=== PATIENT | male | born 1995 | race Hispanic/Latino ===

== ENCOUNTER 2020-04-30 08:24 | Emergency (ER) | payer SELFPAY ==
[2020-04-30 10:00] LABS: Absolute Lymphocytes (CBC) 2.7 K/uL (0.7-4.9); Basophils % 0.6 % (0-1.3); Lymphocytes % 30.4 % (15.3-44.8); MPV 9.4 fL (7.6-11.3); RBC Red Blood Cell Count 5.36 M/uL (4.33-5.43)
[2020-04-30] MEDS ORDERED: NA CHLORIDE 0.9% 0 ML ONE (10:01)
[2020-04-30] MEDS ORDERED: NA CHLORIDE 0.9% 1,000 ML ONE (10:02)
[2020-04-30 10:10] LABS: BUN Blood Urea Nitrogen 16 mg/dL (7-18); Bicarbonate 29 mmol/L (21-32); Glucose Level 256 mg/dL (74-106); Potassium 3.8 mmol/L (3.5-5.1); Sodium Level 140 mmol/L (136-145)
--- NOTE | 2020-04-30 11:53 | EDPHYS ---
Physician Documentation [facility] Name: Bharathi Sanchez Jr Age: 24 yrs Sex: Male : 1995 Arrival Date: 04/30/2020 Time: 08:27 Bed 8 Private MD: ED Physician Kota Miles HPI: 04/30 09:36 This 24 yrs old Male presents to ER via Ambulatory with complaints of High kb Blood Sugar. 09:36 The patient or guardian reports hyperglycemia, that was potentially precipitated by no kb particular event. Onset: The symptoms/episode began/occurred today. Associated signs and symptoms: Pertinent positives: None. Pertinent negatives: None. Current symptoms: In the emergency department the patient's symptoms are unchanged from the initial presentation. The patient has not experienced similar symptoms in the past. The patient has not recently seen a physician. Pt reports he got a physical at work this morning and they told him his blood sugar was over 500 so he needed to come to the ER. Denies any medical history. Does have a family history of DM (mother). . Historical: - Allergies: 08:41 No Known Allergies; iw - Home Meds: 08:41 None [Active]; iw - PMHx: 08:41 None; iw - PSHx: 08:41 None; iw - Immunization history:: Adult Immunizations up to date. - Social history:: Smoking status: Patient reports the use of cigarette tobacco products, smokes one-half pack cigarettes per day. ROS: 09:36 Constitutional: Negative for fever, chills, and weight loss, Cardiovascular: Negative kb for chest pain, palpitations, and edema, Respiratory: Negative for shortness of breath, cough, wheezing, and pleuritic chest pain, Abdomen/GI: Negative for abdominal pain, nausea, vomiting, diarrhea, and constipation, Back: Negative for injury and pain, MS/Extremity: Negative for injury and deformity, Skin: Negative for injury, rash, and discoloration, Neuro: Negative for headache, weakness, numbness, tingling, and seizure. Exam: 09:36 Constitutional: This is a well developed, well nourished patient who is awake, alert, kb and in no acute distress. Head/Face: Normocephalic, atraumatic. Chest/axilla: Normal chest wall appearance and motion. Nontender with no deformity. No lesions are appreciated. Cardiovascular: Regular rate and rhythm with a normal S1 and S2. No gallops, murmurs, or rubs. Normal PMI, no JVD. No pulse deficits. Respiratory: Lungs have equal breath sounds bilaterally, clear to auscultation and percussion. No rales, rhonchi or wheezes noted. No increased work of breathing, no retractions or nasal flaring. Abdomen/GI: Soft, non-tender, with normal bowel sounds. No distension or tympany. No guarding or rebound. No evidence of tenderness throughout. Skin: Warm, dry with normal turgor. Normal color with no rashes, no lesions, and no evidence of cellulitis. MS/ Extremity: Pulses equal, no cyanosis. Neurovascular intact. Full, normal range of motion. Neuro: Awake and alert, GCS 15, oriented to person, place, time, and situation. Cranial nerves II-XII grossly intact. Motor strength 5/5 in all extremities. Sensory grossly intact. Cerebellar exam normal. Normal gait. Vital Signs: 08:40 BP 117 / 71; Pulse 58; Resp 18; Temp 98.2; Pulse Ox 99% ; Weight 104.33 kg; Height 6 iw ft. 3 in. (190.50 cm); Pain 0/10; 09:42 BP 117 / 72; Pulse 69; Resp 16; Pulse Ox 100% ; bp 10:38 BP 119 / 69; Pulse 53; Resp 16; Pulse Ox 100% ; bp 11:39 BP 106 / 94; Pulse 56; Resp 14; Pulse Ox 100% ; bp 08:40 Body Mass Index 28.75 (104.33 kg, 190.50 cm) iw MDM: 08:48 Patient medically screened. kb 09:36 Data reviewed: vital signs, nurses notes. Data interpreted: Pulse oximetry: on room air kb is 99 %. Interpretation: normal. 11:51 Counseling: I had a detailed discussion with the patient and/or guardian regarding: the kb historical points, exam findings, and any diagnostic results supporting the discharge/admit diagnosis, lab results, the need for outpatient follow up, a family practitioner, to return to the emergency department if symptoms worsen or persist or if there are any questions or concerns that arise at home. 04/30 08:58 Order name: CBC with Diff; Complete Time: 10:03 kb 04/30 08:58 Order name: Basic Metabolic Panel; Complete Time: 10:12 kb 04/30 08:58 Order name: Hemoglobin A1c kb 04/30 08:58 Order name: Glucose, Ancillary Testing; Complete Time: 09:00 [facility] 04/30 11:29 Order name: Hemoglobin A1c; Complete Time: 11:51 [facility] 04/30 08:58 Order name: IV Start; Complete Time: 09:42 kb Administered Medications: 09:50 Drug: NS 0.9% 1000 ml Route: IV; Rate: 1000 ml; Site: right forearm; bp 12:08 Follow up: IV Status: Completed infusion; IV Intake: 1000ml bp Point of Care Testing: Blood Glucose: 08:47 Blood Glucose: 262 mg/dL; iw Ranges: Critical Glucose Levels:Adult <50 mg/dl or >400 mg/dl <40 mg/dl or >180 mg/dl Disposition: 04/30/20 11:52 Discharged to Home. Impression: Diabetes mellitus due to underlying condition with hyperglycemia. - Condition is Stable. - Discharge Instructions: Type 2 Diabetes Mellitus, Diagnosis, Adult, [id number], Type 2 Diabetes Mellitus, Self Care, Adult, [id number]. - Prescriptions for Metformin 500 mg Oral Tablet - take 1 tablet by ORAL route 2 times per day for 14 days Then take 1 tablet with morning meals AND evening meals; 28 tablet. - Medication Reconciliation Form, Thank You Letter, Antibiotic Education, Prescription Opioid Use, Work release form form. - Follow up: Emergency Department; When: As needed; Reason: Worsening of condition. Follow up: Private Physician; When: 2 - 3 days; Reason: Recheck today's complaints, Continuance of care, Re-evaluation by your physician. Signatures: Dispatcher [employer] [facility] Michelle Escobar, SECOND HELPER-C SECOND HELPER-Maddie Broussard, MIGNON RN iw Jt Gutierres RN RN bp Corrections: (The following items were deleted from the chart) 12:09 11:52 04/30/2020 11:52 Discharged to Home. Impression: Diabetes mellitus due to bp underlying condition with hyperglycemia. Condition is Stable. Forms are Medication Reconciliation Form, Thank You Letter, Antibiotic Education, Prescription Opioid Use. Follow up: Emergency Department; When: As needed; Reason: Worsening of condition. Follow up: Private Physician; When: 2 - 3 days; Reason: Recheck today's complaints, Continuance of care, Re-evaluation by your physician. kb
--- NOTE | 2020-04-30 11:53 | ER ---
Nurse's Notes [facility] Name: Bharathi Sanchez Jr Age: 24 yrs Sex: Male : 1995 Arrival Date: 04/30/2020 Time: 08:27 Bed 8 Private MD: Diagnosis: Diabetes mellitus due to underlying condition with hyperglycemia Presentation: 04/30 08:40 Chief complaint: Patient states: I went for a work physical and they told me my blood iw sugar was high and I needed to come to the ER for evaluation. Coronavirus screen: Client denies travel out of the [place] in the last 14 days. At this time, the client does not indicate any symptoms associated with coronavirus-19. Ebola Screen: Patient negative for fever greater than or equal to 101.5 degrees Fahrenheit, and additional compatible Ebola Virus Disease symptoms Patient denies exposure to infectious person. Patient denies travel to an Ebola-affected area in the 21 days before illness onset. No symptoms or risks identified at this time. Initial Sepsis Screen: Does the patient meet any 2 criteria? No. Patient's initial sepsis screen is negative. Does the patient have a suspected source of infection? No. Patient's initial sepsis screen is negative. Risk Assessment: Do you want to hurt yourself or someone else? Patient reports no desire to harm self or others. Onset of symptoms was April 30, 2020. 08:40 Method Of Arrival: Ambulatory iw 08:40 Acuity: IKE 3 iw Triage Assessment: 08:41 General: Appears in no apparent distress. Behavior is calm, cooperative. Pain: Denies iw pain. 09:20 General: Appears in no apparent distress. comfortable, Behavior is cooperative, bp appropriate for age, anxious. Pain: Denies pain. EENT: No deficits noted. Neuro: No deficits noted. Cardiovascular: No deficits noted. Respiratory: No deficits noted. GI: No signs and/or symptoms were reported involving the gastrointestinal system. : No signs and/or symptoms were reported regarding the genitourinary system. Derm: No deficits noted. Musculoskeletal: No deficits noted. Historical: - Allergies: 08:41 No Known Allergies; iw - Home Meds: 08:41 None [Active]; iw - PMHx: 08:41 None; iw - PSHx: 08:41 None; iw - Immunization history:: Adult Immunizations up to date. - Social history:: Smoking status: Patient reports the use of cigarette tobacco products, smokes one-half pack cigarettes per day. Screenin:21 Abuse screen: Denies threats or abuse. Denies injuries from another. Nutritional bp screening: No deficits noted. Tuberculosis screening: No symptoms or risk factors identified. Fall Risk None identified. Assessment: 09:20 General: SEE TRIAGE NOTE. bp 09:43 Reassessment: IVF INFUSING, VS STABLE ON MONITOR. bp 10:38 Reassessment: IVF INFUSING. REPEAT LABS PENDING FOR DISPO. bp 12:08 Reassessment: PT D/C HOME AMBULATORY, DX WITH DIABETES. bp Vital Signs: 08:40 BP 117 / 71; Pulse 58; Resp 18; Temp 98.2; Pulse Ox 99% ; Weight 104.33 kg; Height 6 iw ft. 3 in. (190.50 cm); Pain 0/10; 09:42 BP 117 / 72; Pulse 69; Resp 16; Pulse Ox 100% ; bp 10:38 BP 119 / 69; Pulse 53; Resp 16; Pulse Ox 100% ; bp 11:39 BP 106 / 94; Pulse 56; Resp 14; Pulse Ox 100% ; bp 08:40 Body Mass Index 28.75 (104.33 kg, 190.50 cm) iw ED Course: 08:27 Patient arrived in ED. as 08:27 Michelle Escobar FNP-C is [facility]. kb 08:27 Kota Miles MD is Attending Physician. kb 08:41 Triage completed. iw 08:41 Arm band placed on right wrist. iw 09:19 Jt Gutierres, MIGNON is Primary Nurse. bp 09:21 Patient has correct armband on for positive identification. Bed in low position. Call bp light in reach. Side rails up X2. 09:40 Inserted saline lock: 22 gauge in right forearm, using aseptic technique. Blood bp collected. 09:42 Hemoglobin A1c Sent. bp 12:09 No provider procedures requiring assistance completed. IV discontinued, intact, bp bleeding controlled, No redness/swelling at site. Pressure dressing applied. Administered Medications: 09:50 Drug: NS 0.9% 1000 ml Route: IV; Rate: 1000 ml; Site: right forearm; bp 12:08 Follow up: IV Status: Completed infusion; IV Intake: 1000ml bp Point of Care Testing: Blood Glucose: 08:47 Blood Glucose: 262 mg/dL; iw Ranges: Intake: 12:08 IV: 1000ml; Total: 1000ml. bp Outcome: 11:52 Discharge ordered by . karen 12:09 Discharged to home ambulatory. bp 12:09 Condition: stable 12:09 Discharge instructions given to patient, Instructed on discharge instructions, follow up and referral plans. medication usage, Demonstrated understanding of instructions, follow-up care, medications, Prescriptions given X 1. 12:09 Patient left the ED. bp Signatures: Michelle Escobar FNP-C FNP-Genoveva Chaidez as Maddie Thomas, RN RN iw Jt Gutierres RN RN bp
[2020-04-30 17:54] VITALS: TEMP 98.2
[2020-04-30 17:55] VITALS: O2SAT 100
[2020-04-30 17:57] VITALS: BP 106/94
== END 2020-04-30 12:09 | disposition home or self-care (01) ==
LOC: ER 08:24
DX: E11.65 Type 2 diabetes mellitus with hyperglycemia (principal); F17.210 Nicotine dependence, cigarettes, uncomplicated
CPT/HCPCS: 36415; 80048; 82947; 83036; 85025; 96360; 96361; 99284; J7030; J7040